=== PATIENT | female | born 1950 | race African-American/Black ===

== ENCOUNTER 2018-04-11 18:20 | Inpatient (IN) | payer OTHER ==
[~2018-04-11] VITALS: Ht 172.7 cm; Wt 169.0 kg
[~2018-04-11 18:20] MED LIST: ALLOPURINOL 10100 M1 PO; AMITRIPTYLINE H50 M2 PO; ASPIR 8181 MG PO; ATORVASTATIN CA40 MG PO; CATAPRES0.2 MG PO; COLACE100 MG PO; COLCHICINE0.6 MG PO; DITROPAN XL15 MG PO; HYDROCODONE-AP1 EAC6 PO; METHYLDOPA500 MG PO; OXYBUTYNIN 5 MG5 M2 PO; SENNA8.6 MG PO; SEROQUEL 50 MG50 MG PO; VESICARE10 M1 PO
[2018-04-11 18:22] VITALS: BP 130/76
[2018-04-11 20:31] LABS: ABSOLUTE NEUTROPHILS 9.7 thou/uL (1.4-8.2); BASOPHILS 0.7 % (0.0-2.0); EOSINOPHILS 3.2 % (0.0-3.0); HEMATOCRIT 42.2 % (37.0-47.0); LYMPHOCYTES 16.3 % (24.0-44.0); MCH 26.9 pg (26.0-34.0); MCHC 33.1 g/dL (28.0-37.0); MCV 81.3 fL (80.0-100.0); MONOCYTES 10.1 % (1.0-8.0); PLATELET COUNT 282 thou/uL (150-400); POLYS 69.7 % (36.0-66.0); RBC 5.19 mil/uL (4.20-5.00); RDW 15.8 % (10.5-14.5); WBC 13.9 thou/uL (4.0-11.0)
[2018-04-11 20:38] LABS: CREATININE 3.9 mg/dL (0.6-1.0); POTASSIUM 3.5 mmol/L (3.5-5.1)
[2018-04-11 20:44] LABS: ALBUMIN 2.6 g/dL (3.4-5.0); TOTAL BILIRUBIN 0.8 mg/dL (<0.1-1.0); TOTAL PROTEIN 7.8 g/dL (6.4-8.2)
[2018-04-11 21:39] LABS: URINE BILIRUBIN NEGATIVE (Negative); URINE BLOOD 1+ (Negative); URINE CLARITY CLEAR; URINE COLOR YELLOW; URINE GLUCOSE-RANDOM* NEGATIVE (Negative); URINE KETONES NEGATIVE (Negative); URINE LEUKOCYTES-REFLEX NEGATIVE (Negative); URINE NITRITE-REFLEX NEGATIVE (Negative); URINE PROTEIN (DIPSTICK) TRACE (Negative); URINE UROBILINOGEN 0.2 E.U./dl (0.2-1.0)
[2018-04-11 21:56] LABS: HYALINE CASTS 0-3 Few /LPF (None Seen); SQUAMOUS 4-10 Moderate /LPF (0-3)
[2018-04-11 21:58] LABS: BACTERIA-REFLEX None Seen /HPF (None Seen); CRYSTALS None Seen /LPF (None Seen); FINE GRANULAR CASTS 0-3 Few /LPF (None Seen); URINE WBC-REFLEX 0-5 Rare /HPF (0-5)
[2018-04-12 00:29] VITALS: BP 107/65
[2018-04-12 00:37] VITALS: BP 140/78
[2018-04-12 04:14] VITALS: BP 148/76
[2018-04-12 06:41] LABS: CALCIUM 8.5 mg/dL (8.5-10.1); POTASSIUM 3.1 mmol/L (3.5-5.1)
[2018-04-12 07:46] VITALS: BP 114/66
[2018-04-12 16:22] VITALS: BP 82/48
[2018-04-12 20:00] VITALS: BP 98/57
[2018-04-12 23:07] LABS: GLYCOHEMOGLOBIN (HGB A1C) 5.4 % (4.8-5.6)
[2018-04-13] VITALS: BP 117/66
[2018-04-13 03:30] VITALS: BP 100/55
[2018-04-13 05:55] LABS: HEMATOCRIT 31.5 % (37.0-47.0); MCH 26.6 pg (26.0-34.0); MCHC 31.9 g/dL (28.0-37.0); MCV 83.3 fL (80.0-100.0); RBC 3.78 mil/uL (4.20-5.00); RDW 16.1 % (10.5-14.5); WBC 10.9 thou/uL (4.0-11.0)
[2018-04-13 06:02] LABS: HEMOGLOBIN 10.1 gm/dL (12.0-15.0)
[2018-04-13 06:08] LABS: CALCIUM 7.1 mg/dL (8.5-10.1); POTASSIUM 3.1 mmol/L (3.5-5.1)
[2018-04-13 08:01] VITALS: BP 112/57
[2018-04-13 17:22] VITALS: BP 148/73
[2018-04-13 19:30] VITALS: BP 147/73
[2018-04-13 20:30] VITALS: BP 107/54
[2018-04-14 04:00] VITALS: BP 138/72
[2018-04-14 06:05] LABS: ABSOLUTE NEUTROPHILS 10.7 thou/uL (1.4-8.2); BASOPHILS 0.3 % (0.0-2.0); EOSINOPHILS 2.8 % (0.0-3.0); HEMATOCRIT 33.2 % (37.0-47.0); HEMOGLOBIN 10.5 gm/dL (12.0-15.0); LYMPHOCYTES 11.9 % (24.0-44.0); MCH 26.2 pg (26.0-34.0); MCHC 31.5 g/dL (28.0-37.0); PLATELET COUNT 200 thou/uL (150-400); RDW 15.5 % (10.5-14.5); WBC 13.8 thou/uL (4.0-11.0)
[2018-04-14 06:16] LABS: CALCIUM 8.3 mg/dL (8.5-10.1)
[2018-04-14 06:18] LABS: CREATININE 2.5 mg/dL (0.6-1.0)
[2018-04-14 07:50] VITALS: BP 153/78
[2018-04-14 08:53] LABS: FOLIC ACID 12.2 ng/mL (8.6-58.9)
[2018-04-14 16:05] VITALS: BP 151/83
[2018-04-14 19:09] VITALS: BP 157/88
[2018-04-15 04:53] VITALS: BP 157/76
[2018-04-15 05:55] LABS: CALCIUM 9.3 mg/dL (8.5-10.1); CREATININE 2.1 mg/dL (0.6-1.0); POTASSIUM 4.7 mmol/L (3.5-5.1)
[2018-04-15 07:15] VITALS: BP 151/67
[2018-04-15 16:00] VITALS: BP 140/73
[2018-04-15] MEDS ORDERED: MIRALAX17 GM PO (16:13)
[2018-04-15] MEDS ORDERED: NOVOLOG100 UNIT/1 SUBQ (16:51)
== END 2018-04-15 17:49 | DRG 389 ==
LOC: ER 18:20 → EROBS 22:14 → 4E 22:14
PROVIDERS: Emergency Medicine; Nurse Practitioner Acute Care; ADMIT Hospitalist
DX: K56.41 Fecal impaction (principal); N17.9 Acute kidney failure, unspecified; N18.5 Chronic kidney disease, stage 5; F11.20 Opioid dependence, uncomplicated; Z68.43 Body mass index [BMI] 50.0-59.9, adult; N13.9 Obstructive and reflux uropathy, unspecified; E78.00 Pure hypercholesterolemia, unspecified; Z96.641 Presence of right artificial hip joint; R33.9 Retention of urine, unspecified; E11.22 Type 2 diabetes mellitus with diabetic chronic kidney disease; I12.9 Hypertensive chronic kidney disease with stage 1 through stage 4 chronic kidney disease, or unspecified chronic kidney disease; I95.9 Hypotension, unspecified; E87.6 Hypokalemia; E66.01 Morbid (severe) obesity due to excess calories; G89.4 Chronic pain syndrome; M62.84 Sarcopenia; N32.81 Overactive bladder; D63.8 Anemia in other chronic diseases classified elsewhere; Z83.3 Family history of diabetes mellitus; Z90.710 Acquired absence of both cervix and uterus; Z87.891 Personal history of nicotine dependence; Z79.82 Long term (current) use of aspirin; Z79.899 Other long term (current) drug therapy; Z28.21 Immunization not carried out because of patient refusal
CPT/HCPCS: 10084

== ENCOUNTER 2018-04-15 15:07 | Inpatient (IN) | payer OTHER ==
[~2018-04-15] VITALS: Ht 172.7 cm; Wt 160.1 kg
[2018-04-15] MEDS ORDERED: MIRALAX17 GM PO (16:13)
[2018-04-15] MEDS ORDERED: NOVOLOG100 UNIT/1 SUBQ (16:51)
--- NOTE | 2018-04-15 19:42 | NUR ---
ASSUMED CARE AT APPROX 1800. PATIENT A/O X4. ADMISSION HISTORY AND EDUCATION COMPLETE. PATIENT ORIENTED TO UNIT. HOSPITALIST CALLED TO VERIFY INSULIN ORDERS. PATIENT ATE DINNER UPON ARRIVING TO UNIT. BROUGHT IN BED BY VOLUNTEERS. REPORT GIVEN TO NIGHT RN. PATIENT RESTING IN BED AT CHANGE OF SHIFT.
[2018-04-15 20:20] VITALS: BP 157/85
--- NOTE | 2018-04-16 04:57 | NUR ---
ASSUMED CARE OF PT AT 1915. PT ALERT, ORIENTED X4. HAS BEEN INCONT OF URINE AND STOOL THIS SHIFT. ZGARD APPLIED TO OPEN AREAS ON RIGHT BACK. REPOSITIONED WITH ASSIST OF THREE Q2 HRS. HAS APPEARED TO BE SLEEPING WHEN CHECKED ON HOURLY ROUNDS. FALL PRECAUTIONS IN PLACE.
[2018-04-16 06:04] LABS: HEMATOCRIT 38.3 % (37.0-47.0); HEMOGLOBIN 12.3 gm/dL (12.0-15.0); MCH 26.6 pg (26.0-34.0); MCV 83.2 fL (80.0-100.0); RBC 4.61 mil/uL (4.20-5.00); RDW 15.6 % (10.5-14.5); WBC 9.9 thou/uL (4.0-11.0)
[2018-04-16 06:18] LABS: CALCIUM 9.8 mg/dL (8.5-10.1); CREATININE 1.8 mg/dL (0.6-1.0); POTASSIUM 4.4 mmol/L (3.5-5.1)
[2018-04-16 08:00] VITALS: BP 143/87
--- NOTE | 2018-04-16 08:00 | NUR ---
cm visited with pt at bedside, she is a & o x 3 with forgetfulness and confusion at time. intro to cm, team meeting, and transition of care. " live with drt for 8 months , been bed bound. have walker and wheel chair. daughter give me bed bath. cant walk anymore. had rehab in past and maybe hh. have to ask daughter who was with"/karma. will cont following as needed for dc needs. noted in chairtremaine working to see if pt will qualify for bariatric hosp bed for home.
--- NOTE | 2018-04-16 19:24 | NUR ---
ASSUMED CARE OF PT AT 0715. PT IS A&OX4 WITH FORGETFULNESS & CONFUSION AT TIMES. REPORTS PAIN IN BLADDER WHEN UNINATING. HAS FREQUENT URNINATION. MAZA REMOVED YESTERDAY. PUREWICK IN PLACE. PT IS INCONTINENET TO B&B. HAS HAD 3 BM TODAY IN WHICH 2 WERE ON THIS SHIFT. IS BED-BOUND & IS TURNED Q2H. IS UP WITH A JERRY LIFT TIMES TWO. FALL PRECAUTIONS & HOURLY ROUNDING MAINTAINED. PT IS STABLE. LABS & VITALS REVIEWED. PT IS IN ROOM IN BED RESTING. CALL LIGHT WITHIN REACH. WILL CONTINUE TO MONITOR.
[2018-04-16 19:55] VITALS: BP 129/82
[2018-04-16 23:16] LABS: URINE BILIRUBIN NEGATIVE (Negative); URINE BLOOD 2+ (Negative); URINE CLARITY SL CLOUDY; URINE COLOR YELLOW; URINE GLUCOSE-RANDOM* NEGATIVE (Negative); URINE KETONES NEGATIVE (Negative); URINE PROTEIN (DIPSTICK) 1+ (Negative); URINE SPECIFIC GRAVITY 1.015 (1.005-1.035); URINE UROBILINOGEN 0.2 E.U./dl (0.2-1.0)
[2018-04-16 23:22] LABS: URINE LEUKOCYTES-REFLEX 1+ (Negative); URINE NITRITE-REFLEX POSITIVE (Negative)
[2018-04-16 23:24] LABS: BACTERIA-REFLEX >30 Many /HPF (None Seen); CASTS None Seen /LPF (None Seen); MUCUS 0-3 Light strn/LPF (None Seen); SQUAMOUS None Seen /LPF (0-3); URINE RBC 3-10 Few /HPF (0-2); URINE WBC-REFLEX >25 Many /HPF (0-5)
[2018-04-16 23:25] LABS: CRYSTALS None Seen /LPF (None Seen); WBC CLUMPS Few (None Seen)
--- NOTE | 2018-04-17 00:38 | NUR ---
PT ASSESSMENT COMPLETED AND VSS. MEDS GIVEN ORDERED AND WELL TOLERATED. FALL PRECAUTIONS IN PLACE. BG WNL. URINE SENT FOR TESTING TO THE LAB. +UTI. LAW WRITER DANIEL AWARE. FEMALE CATH IN PLACE AND WORKING WELL. URINE CLOUDY WITH SEDIMENT. INC OF MODERATE SIZE SOFT BROWN STOOL. ASST WITH REPOSITION. SLEEPING WELL. WILL CONTINUE TO MONITOR FREQUENTLY.
[2018-04-17 07:47] VITALS: BP 152/94
--- NOTE | 2018-04-17 11:43 | NUR ---
ASSUMED CARE AT APPROX 0715. PATIENT A/O X4. NEEDS CUES FOR REDIRECTION AT TIMES. PARTICIPATING IN THERAPY. EXTERNAL CATHETER IN PLACE, PATIENT ANXIOUS ABOUT REMOVAL. LOW BED MOBILITY AT THIS TIME, PATIENT EDUCATED ON MATTHEW-CARE AND MAINTAINING SKIN INTERGRITY, WILL REMOVE TO ASSESS SKIN. PATIENT HAD MULTIPLE SOFT BM'S LAST NIGHT, PROVIDER PAGED TO NOTIFY. BLOOD SUGARS MONITORED, WNL. PATIENT EDUCATED ON CC DIET, STATED SHE WAS ON ORAL DIABETIC MEDS AT HOME. PRAFO BOOTS PROVIDED. SCD'S IN PLACE. PATIENT TURNED Q2 HOURS. FALL PRECAUTIONS IN PLACE. WILL CONTINUE TO MONITOR.
[2018-04-17 19:42] VITALS: BP 153/88
--- NOTE | 2018-04-18 04:01 | NUR ---
TURNING PATIENT TO RELIVE PRESSURE ON HER RIGHT BACK WHERE THERE ARE 3 SMALL WOUNDS. EXTERNAL FEMALE CATHETER IN PLACE AND IS DRAINING JOSE JUAN URINE. MOISTURE BARRIER TO RIGHT BACK AND PERIRECTAL AREA AFTER CLEANSED WITH WIPES. HEEL PROTECTOR BOOTS IN PLACE AND TOLERATED, LOW AIR LOSS BED THERAPY CONTINUES
--- NOTE | 2018-04-18 11:36 | NUR ---
ASSUMED CARES AT 0700. PT AWAKE, ALERT AND ORIENTED*3, FORGETFUL. VITALS REMAINED STABLE FOR THIS PATIENT. C/O PAIN ON HER LOWER BACK, PAIN MEDICATION ADMINISTERED NEEDED. PT CONTINUES TO HAVE WOUNDS ON HER BACK RIGHT AND LEFT GROIN, CLEANED AND ZGUARD APPLIED. CREAM COLORED VAGINAL DISCHARGE NOTED, MATTHEW CARE DONE AND SITE DRIED, EXTERNAL FEMALE CATHETER IN PLACE. PT REMAINS INCONTINENT OF BOTH B&B. SKIN FOLDS UNDER HER BREASTS AND ABDOMEN CLEAN AND DRY. PT HAS DRY SKIN ON HER BLE, LOTION APPLED. PT REPOSITIONED Q2H, SCD'S ON AND PRESSURE BOOTS ON. Q1H VISUAL CHECKS. CALL LIGHT WITHIN REACH. FALL PRECAUTIONS IN PLACE
[2018-04-18 19:18] VITALS: BP 152/81
[2018-04-18 20:51] VITALS: BP 143/56
--- NOTE | 2018-04-18 23:29 | NUR ---
PT ASSESSMENT COMPLETED AND VSS. MEDS GIVEN ORDERED AND WELL TOLERATED. FALL PRECAUTIONS IN PLACE. PT IS ASKING TO LOOSE WEIGHT AND HER GOAL IS TO WALK AGAIN. SHE WANTS A NEW DIET PLAN PUT TOGETHER. ALSO, SHE WANTS TO TALK WITH THERAPY ABOUT HER GOAL TO WALK AND SEE IF THEY THINK SHE CAN. ASST WITH REPOSITION. PRN PAIN MEDICATION WORKING WELL. SLEEPING. WILL CONTINUE TO MONITOR FREQUENTLY.
[2018-04-19 08:00] VITALS: BP 149/91
--- NOTE | 2018-04-19 12:29 | NUR ---
ASSUMED CARES AT 0700. PT IN BED AWAKE, ALERT AND ORIENTED *4, FORGETFUL AND EASILY DISTRACTED. C/O LOW BACK PAIN, PAIN MEDICATION ADMINISTERED. VITALS REMAINED STABLE. CONTINUES TO HAVE EDEMA IN BLE. SKIN TEARS ON BACK RIGHT AND GROIN LEFT, CLEANED AND Z-GUARD APPLIED. EXTERNAL FEMALE CATHETER IN PLACE WHEN IN BED, URINE DARK YELLOW WITH MUCUS. PT ABLE TO SIT ON EDGE OF BED WITH THERAPY THIS AM AND STOOD UP *2 ON EDGE OF BED FOR 15SEC DID NOT TOLERATE WELL. SCD AND PRESSURE BOOTS ON. Q2H REPOSITION. Q1H VISUAL CHECKS. CALL LIGHT WITHIN REACH. FALL PRECAUTIONS IN PLACE. BARIATRIC BED DELIVERED AND PT TRANSFERED TO BED WITH HELP OF THERAPIST.
[2018-04-19 19:00] VITALS: BP 153/80
--- NOTE | 2018-04-20 00:42 | NUR ---
assumed care at approx 1900 evening 04/19. pt lying in bed with head of bed elevated resting and talking on cell phone at bedside. pts speech somewhat difficult to understand at times. pt now with luther catheter in place with dark yellow urine in bag. pt given pain med earlier and pt appears to be sleeping soundly with hourly rounding checks. pt assisted with turning in bariatric bed. alarm on and call light in reach. will continue to monitor.
[2018-04-20 05:34] VITALS: BP 157/83
[2018-04-20 06:12] LABS: ABSOLUTE NEUTROPHILS 4.8 thou/uL (1.4-8.2); BASOPHILS 0.8 % (0.0-2.0); HEMATOCRIT 35.3 % (37.0-47.0); HEMOGLOBIN 11.3 gm/dL (12.0-15.0); MCH 26.5 pg (26.0-34.0); MCV 82.6 fL (80.0-100.0); MONOCYTES 11.7 % (1.0-8.0); PLATELET COUNT 273 thou/uL (150-400); POLYS 60.5 % (36.0-66.0); RBC 4.27 mil/uL (4.20-5.00); RDW 15.3 % (10.5-14.5); WBC 7.9 thou/uL (4.0-11.0)
[2018-04-20 06:32] LABS: CALCIUM 9.2 mg/dL (8.5-10.1); CREATININE 2.1 mg/dL (0.6-1.0); MAGNESIUM 1.8 mg/dL (1.8-2.4); POTASSIUM 4.3 mmol/L (3.5-5.1)
[2018-04-20 08:10] VITALS: BP 120/72
--- NOTE | 2018-04-20 11:42 | NUR ---
ASSUMED CARES AT 0700. REPORTS SLEPT GOOD HAS MAZA CATH PATENT AND INTACT.PT ALERT AND ORIENTED *4, HAS SLURRED SPEECH, NOT CLEAR D/T MISSING TEETH. FORGETFUL AND EASILY DISTRACTED. C/O LOW BACK PAIN AND KNEE PAIN 8/10 PAIN MEDICATION ADMINISTERED, OBTAINED ORDER FOR VOLTAREN GEL. VITALS REMAINED STABLE. CONTINUES TO HAVE EDEMA IN BLE, ELEVATE BLE WHEN IN BED. SKIN TEARS ON BACK RIGHT AND GROIN LEFT, CLEANED AND Z-GUARD APPLIED. OT GAVE SPRONGE BATH AND PHYSICAL THERAPIST GOT PT UP IN WC THIS AM AND STOOD UP *2 ON EDGE OF BED FOR 15SEC DID NOT TOLERATE WELL. SCD AND PRESSURE BOOTS ON. Q2H REPOSITION. Q1H VISUAL CHECKS. CALL LIGHT WITHIN REACH. FALL PRECAUTIONS IN PLACE. BARIATRIC BED DELIVERED AND PT TRANSFERED TO BED WITH HELP OF THERAPIST. OFFERERED SUPPORTIVE CARE. MEDS GIVEN ORDERED. BS 102. NO INSULIN. OBTAINED ORDER TO CHANGE ACHS TO ONE DAILY. FALL PRECAUTION IN PLACE. CALL LIGHT WITHIN REACH. ENCOURAGED PT TO SIT UP TO WC UNTIL AFTER THERAPY. REASSESSMENT PER CHART. LAST BM WAS 2 DAYS AGO. CONTINUE TO BE ON ABT FOR UTI. CREATINE 2.1, NOTIFIED YOBANY AND ENCOURAGED PT TO DRINK MORE FLUID.
[2018-04-20 13:22] VITALS: BP 126/82
--- NOTE | 2018-04-20 16:56 | NUR ---
Followup visit made with the pt at bedside to discuss team conference goals and dc recommendations. Message left for the pt's dtr Malika to contact cm to discuss her dc planning needs and the care team recommendations. The care team would like the family to bring in clothing and a phone academic guidance specialist as her is not working. They would like to know how the home is setup and if her w/c is able to go through the doorways of the bedroom,living,bathroom and kitchen. Pt is working on propelling her w/c 75'. Weight bearing activities are the goal for next week. Family will likely need training for transfers and the pt may need a ross lift ( tremaine has one that goes to 450lbs). Will f/u on barriatric bed request. The pt is motivated and would like to be able to be up in her chair and assist with transfers at home. DC date uncertain pending her progress. Re team next week.
[2018-04-20 20:06] VITALS: BP 156/89
--- NOTE | 2018-04-21 01:38 | NUR ---
PT ASSESSMENT COMPLETED AND VSS. MEDS GIVEN ORDERED AND WELL TOLERATED. FALL PRECAUTIONS IN PLACE. PRN PAIN MEDICATION WORKING WELL. MAZA DRAINING DARK YELLOW URINE. ASST WITH REPOSITION FOR COMFORT. JAZLYN FOOT BOOTS IN PLACE. PT DENIES NEEDS. WILL CONTINUE TO MONITOR FREQUENTLY.
[2018-04-21 08:20] VITALS: BP 132/79
--- NOTE | 2018-04-21 16:51 | NUR ---
ASSUMED CARE AT APPROX 0715. PATIENT A/O X4. NEEDS CUES FOR REDIRECTION, MAKES NEEDS KNOWN APPROPRIATELY. VSS. REPOSITIONTED Q2 WHILE IN BARIATRIC BED. HEEL PROTECTOR BOOTS AND SCD'S IN PLACE. PARTICIPATED IN THERAPY. TOLERATED SITTING UP IN WHEELCHAIR FOR >2 HOURS THIS AFTERNOON. ASSISTED TO BED X2 PERSONS AND JERRY LIFT. PATIENT C/O BACK PAIN, PAIN MEDS OFFERED AVAILABLE. ROUNDED ON HOURLY. FALL PRECAUTIONS IN PLACE. WILL CONTINUE TO MONITOR.
[2018-04-21 20:31] VITALS: BP 141/75
--- NOTE | 2018-04-22 03:12 | NUR ---
TURNED TO SIDE IB BARIATRIC BED, COMPELLA THERAPY CONTINUES, CUSHIONED HEEL BOOTS IN PLACE. SHAUNNA BISWAS DD. APPRECIATES PAIN MED AT HS. TOLERATING MEDS AND IS AWARE THAT ELAVIL IS INCREASED FROM 50 TO 75 AT HS
--- NOTE | 2018-04-22 04:51 | NUR ---
LEFT GROIN CLEANED; Z-GUARD APPLIED TO GROIN AND UNDER PANNUS, SKIN UNBROKEN
[2018-04-22 05:33] VITALS: BP 171/94; BP 191/94
--- NOTE | 2018-04-22 07:57 | NUR ---
PT IS A&0X4, SLIGHTLY FORGETFUL, HASN'T AMB SINCE LAST MAY, C/O PAIN LOWER BACK AND RIGHT FOOT BEING MANAGED BY PAIN MED ADM, USES CALL LIGHT FOR NEEDS, SEE INTERVENTION FOR ASSESSMENT, TURN Q2H, PT MAKES SOME SMALL POSITION CHANGES BY SELF. ENCOURAGED HER TO CALL FOR ANY NEEDS
[2018-04-22 08:50] VITALS: BP 146/86
--- NOTE | 2018-04-22 10:56 | H ---
[facility] [place] [address] HISTORY AND PHYSICAL Name: STERLING DEWITT Room #: 516-1 ADM IN M.R.#: [id number] Admission: 04/15/18 ������������������ Attend Phys: Abdiel Rodriguez MD Discharge: ������������������ Date of : 52 Report #: [id number] THIS REPORT FOR: //name// CC: Abdiel Stuart DATE OF SERVICE: 04/16/2018 REFERRING PHYSICIAN: Dr. Eddi Kirby CHIEF COMPLAINT: Weakness. COVERING FOR: Dr. Abdiel Rodriguez. HISTORY OF PRESENT ILLNESS: The patient is a pleasant 67-year-old right-hand dominant female who was admitted to [facility] on 05/09/2018 with symptoms of urinary retention and fecal impaction. She was disimpacted and the Marino catheter was placed. She has acute kidney insufficiency with initial creatinine of 3.9, which improved during her stay. She was evaluated for inpatient rehabilitation needs and found to be an appropriate candidate for the program. PAST MEDICAL HISTORY: As above. Also pertinent for hypertension, morbid obesity with a BMI of 57.5, chronic kidney disease stage 3, hypercholesterolemia and diabetes mellitus type 2, gout. PAST SURGICAL HISTORY: Hysterectomy. She has tubal ligation and right hip replacement. ALLERGIES: No known drug allergies. SOCIAL HISTORY: Smoking: She quit over 1 year ago. Alcohol and drug use: None. The patient premorbidly lives at home with her daughter and grandson. They are able to assist her during the day. She is mostly bed bound and has not been up to even her manual wheelchair for some time according to her report. She has not walked since 2018 after several falls. She has assistance x 2 at the edge of the bed once a week and otherwise stays in bed. IADLs are provided and she has maximal assistance for ADLs. She is able to feed herself. She does not leave the house unless by EMS or ambulance. She has 2 stairs to enter and exit the home. MEDICATIONS: Reviewed. I note that she is receiving allopurinol for gout, which has improved. Please see the written documentation of the history and physical for the full details of her medications and dosages. FAMILY HISTORY: The patient denies any significant family history that is [facility] [address] [place] [address] HISTORY AND PHYSICAL Name: STERLING DEWITT Room #: 516-1 ADM IN [facility].#: [id number] Admission: 04/15/18 ������������������ Attend Phys: Abdiel Rodriguez MD Discharge: ������������������ Date of : 52 Report #: [id number] related to her current condition. REVIEW OF SYSTEMS: As above. Specifically, she denies chest pain, shortness of breath, fevers, chills, headaches. Otherwise, remainder of 12-point review is negative except for what was stated above. PHYSICAL EXAMINATION: GENERAL: No acute distress, well-developed, well-nourished, BMI 57.5, afebrile. CARDIOVASCULAR: Pulses are 2+ and regular. LUNGS: Aerating well. ABDOMEN: Soft, nontender, nondistended. EXTREMITIES: Calves are nontender. Homans sign is negative. She has bilateral lower extremity edema of 1+ bilaterally. LYMPHATICS: No cervical adenopathy. MUSCULOSKELETAL: Functionally, she requires attendant's assistance for bed mobility and requires maximal assistance to sit at the edge of the bed. She shows no foot drop. She does not have any tremors or clonus. Her muscle strength is graded 3/5 bilaterally. Unable to lift her legs antigravity bilaterally, but she can move her legs in the bed a little bit. NEUROLOGIC/PSYCHIATRIC: Coordination is fair. Muscle stretch reflexes 1/4 and symmetric. Sensation impaired in the feet bilaterally. Alert, oriented, pleasant, cooperative with exam. Mood is good. IMPRESSION: Mobility and self-care deficits in a 67-year-old right-hand dominant female secondary to: 1. Cardiopulmonary debilitation. 2. Fecal impaction, status post disimpaction. 3. Urinary retention. 4. Acute kidney insufficiency on chronic renal disease. 5. Hypertension. 6. Hypokalemia. 7. Morbid obesity, BMI 57.5. 8. Chronic pain syndrome. 9. Diabetes mellitus type 2. PLAN: 1. Admit to the rehabilitation unit for comprehensive therapies. 2. Please see the plan of care, post-admission physician evaluation and admission orders for full details of her rehabilitation care plan. 3. DVT prophylaxis with sequential compression devices and compression hose as well as ankle pumping exercises. Anticoagulation decisions per Internal Medicine. 4. Dr. Rodriguez will return to the office on 06/20/2018 and resume care at that time. 5. Weekly team conferences to discuss rehabilitation progress. [address] [address] HISTORY AND PHYSICAL Name: STERLING DEWITT Room #: 516-1 ADM IN M.R.#: [id number] Admission: 04/15/18 ������������������ Attend Phys: Abdiel Rodriguez MD Discharge: ������������������ Date of : 52 Report #: [id number] POST-ADMISSION PHYSICIAN EVALUATION: Post-admission physician evaluation has been completed. The patient's preadmission screen was reviewed in its entirety. Clinical status is supported by the information contained within that document. The patient is an appropriate candidate to undergo a comprehensive inpatient rehabilitation program consisting of PT, OT and rehabilitation nursing 3 hours a day at least 5 days per week. Furthermore, nothing has changed since the preadmission screen was completed to suggest that the patient would not be able to tolerate or benefit from this rehabilitation program. It is my opinion that inpatient rehabilitation rather than jail is a more appropriate place for the patient due to her multiple medical needs, requiring comprehensive followup care. She is at risk for developing clinical complications during her participation in the rehabilitation program due to the medical conditions that were noted above. Plan to manage these medical conditions as noted above, will be to consult the referring physicians as noted in the admission orders and follow her closely during her rehabilitation course. INDIVIDUALIZED PLAN OF CARE: Some additional finding. The patient is receiving inpatient rehabilitation due to the functional impairments that were noted above. Identified interventions include physical therapy and occupational therapy to address her mobility and self-care deficits. PM and R will provide rehabilitation management. Internal Medicine will follow up on multiple medical issues. Rehabilitation nursing care 24 hours a day for care needs. patient financial services coordinator for discharge planning, medical equipment needs and dietitian consultation for nutrition. ESTIMATED LENGTH OF STAY: Approximately 10-14 days. ANTICIPATED FUNCTIONAL OUTCOME: Mild to minimal assistance with transfers to and from the bed to the wheelchair using a slide board. She will require at least moderate assistance for her daily activities. She will continue to be dependent for IADLs. ANTICIPATED DISCHARGE DESTINATION: Home with family. She will likely need home health services at that time. MEDICAL PROGNOSIS: Good. ANTICIPATED THERAPIES: Physical, occupational therapy 3 hours a day 5 days a week for an anticipated duration of 10-14 days. SUMMARIZATION OF TREATMENT PLAN: The patient will continue to receive an [facility] [address] [place] [address] HISTORY AND PHYSICAL Name: STERLING DEWITT Room #: 516-1 ADM IN M.R.#: [id number] Admission: 04/15/18 ������������������ Attend Phys: Abdiel Rodriguez MD Discharge: ������������������ Date of : 52 Report #: [id number] inpatient rehabilitation program as outlined above in an effort to improve her overall function and return home at the level of function mentioned above. ��������������������������������������������� <ELECTRONICALLY SIGNED> ���������������������������������������� By: Abdiel Rodriguez MD ��������������������������������������������� 04/22/18 [id number] Aroldo Torres, /nt
[2018-04-22 11:30] LABS: CALCIUM 9.2 mg/dL (8.5-10.1); CREATININE 2.2 mg/dL (0.6-1.0); POTASSIUM 4.2 mmol/L (3.5-5.1); URIC ACID* 5.9 mg/dL (2.6-7.2)
--- NOTE | 2018-04-22 12:53 | NUR ---
cm called left message with daughter tip, rt home environment ( size for door way, if room for bariatric hospital bed?). will cont following as needed for dc needs.
[2018-04-22 20:13] VITALS: BP 130/68
--- NOTE | 2018-04-23 03:25 | NUR ---
Assumed care of pt at 1915. Pt alert and oriented x4. Marino cath patent with clear yellow urine. Prafo boots on at HS. Repositioned q 2 hrs. Last BM 04/18, pt refuses laxatives at this time. Has appeared to be sleeping when checked on hourly rounds. Fall precautions in place.
--- NOTE | 2018-04-23 08:20 | NUR ---
Nutrition: Consulted for wt loss education. BMI of 58.1 Discussed carb sources, wt loss tips, heart healthy diet recommendations. BG and A1c controlled. Considered low risk.
[2018-04-23 08:30] VITALS: BP 145/91
--- NOTE | 2018-04-23 09:45 | NUR ---
cm spoke with pt at bedside, rt needing to speak with t rt taylor, " she works but i will have her call you"/karma. letty left another message with tip with request for call back.
--- NOTE | 2018-04-23 20:03 | NUR ---
ASSUMED CARE OF PT AT 0715. PT IS A&OX4. IS ON ROOM AIR. DENIES PAIN AT THIS TIME. IS STABLE. IS Q2H TURNED. IS UP WITH JERRY LIFT TRANSFER TO W/C. FALL PRECAUTIONS & HOURLY ROUNDING MAINTAINED. PT HAS HEALING SCABS FROM SKIN TEARS ON BACK & LEFT GROIN. LABS & VITALS REVIEWED. THIS NURSE DC'D SHAUNNA PER ORDER. PT IS CURRENTLY IN BED ON RIGHT SIDE WATCHING TV. CALL LIGHT WITHIN REACH. WILL CONTINUE TO MONITOR.
[2018-04-23 21:00] VITALS: BP 150/101
--- NOTE | 2018-04-24 03:23 | NUR ---
ASSUMED CARE OF PT AT 191. PT ALERT AND ORIENTED X4. SHAUNNA WAS DC'D BY DAY SHIFT RN AT 194. PT HAS NOT VOIDED OF YET. BLADDER SCAN DONE AT 214 WITH 124CC SEEN IN BLADDER. PT C/O PAIN IN RIGHT KNEE, RELIEVED WITH VOLTAREN GEL. TURNED Q 2 HRS. HAS APPEARED TO BE SLEEPING WHEN CHECKED ON HOURLY ROUNDS.
[2018-04-24 06:11] VITALS: BP 147/86
[2018-04-24 07:30] VITALS: BP 170/90
--- NOTE | 2018-04-24 13:10 | NUR ---
ASSUMED CARE OF PT AT 0715. PT A&OX4. INCONT BLADDER SINCE MAZA REMOVED YESTERDAY. CONTINUE TO BE ON PROTOCOL PER MAZA REMOVED. PT SOAKED HER BED. BLADDER SCANNED HAS 218 CC RESIDUAL. VSS ON RA. C/O BACK AND KNEE PAIN. PRN LORTAB GIVEN, VOLTAREN GEL APPLIED. IS Q2H TURNED WHILE IN BED. PT ABLE TO MOVE WELL IN BED WITH ASSIST AND ENCOURGEMENT. REFUSED TO GET UP WITH JERRY LIFT TODAY D/T ABD DISCOMFORT. BS HYPOACTIVE. LAST BM WAS 7 DAYS AGO. GAVE PRN COLACE, SENNOKOT AND MIRALAX WITH WARM PRUNE JUICE. CREATINE IS 2.2, DR. VELEZ AWARES OF LAB AND PT'S CONSTIPATION. RECEIVED ORDER TO CHANGE PRN COLACE AND SENOKOT TO SCHEDULED. FALL PRECAUTIONS & HOURLY ROUNDING MAINTAINED. PT HAS HEALING SCABS FROM SKIN TEARS ON BACK & LEFT GROIN. OFFERED SUPPORTIVE CARE. MEDS GIVEN ORDERED AND PRN. LABS REVIEWED. PT CONTINUE TO PARTICIPATES WITH THERAPY EVEN WHEN SHE DIDN'T GET UP. PT IS CURRENTLY IN BED ON RIGHT SIDE WATCHING TV. CALL LIGHT WITHIN REACH. WILL CONTINUE TO MONITOR BM.
--- NOTE | 2018-04-24 14:55 | HC ---
[facility] [place] [address] CONSULTATION Name: STERLING DEWITT Room #: 516-1 ADM IN M.R.#: [id number] Admission: 04/15/18 ������������������ Attend Phys: Abdiel Rodriguez MD Discharge: ������������������ Date of : 52 Report #: [id number] THIS REPORT FOR: //name// CC: Abdiel Alexandraa Suuri DATE OF SERVICE: 04/17/2018 ATTENDING PHYSICIAN: Abdiel Rodriguez MD LABORER RAGS: Elvis Herrera, PhD CLINICAL PRESENTATION: The patient is a 67-year-old female admitted to the rehabilitation unit at [facility] for a comprehensive inpatient rehabilitation program to improve functional mobility and activities of daily living and self-care and mental status secondary to medical complexity and general debility. She carries an admitting diagnosis of cardiopulmonary debilitation, fecal impaction, status post disimpaction, urinary retention, acute kidney insufficiency on chronic renal disease, hypertension, hypokalemia, morbid obesity, chronic pain syndrome and diabetes mellitus, type 2. The patient reports having been living with her daughter when she experienced a deterioration in functioning requiring hospitalization. A complete description of her medical condition and history can be found in her medical record. Neuropsychological consultation was requested to provide assistance in the assessment of cognitive and emotional status and to provide recommendations and services. As indicated, prior to this most recent medical event, she was living with her daughter. The patient has 6 children, 5 girls and a boy. Her in 1997. The patient has never driven. She has an eighth grade education and has required assistance with basic and instrumental activities of daily living. Family members were bathing her because of morbid obesity. She reports having frequent falls at home. The patient has not worked out of the home. She is primarily a homemaker. TECHNIQUES UTILIZED: Clinical interview, review of medical records, staff consultation and behavioral observation, mini mental status exam 2 standard version and clock drawing. EXAMINATION FINDINGS: The patient was alert and cooperative with the assessment. She accurately described events surrounding her admission and the purpose of hospitalization. She does not present with aphasia. Her thoughts are logical and goal oriented. There is no evidence of thought disorder. She does not report auditory or visual hallucinations. She describes difficulty with memory, sleep and mood. Symptoms of depression and anxiety are reported. She is morbidly obese. The patient is sedentary at home and very dependent on [address] [place] [address] CONSULTATION Name: STERLING DEWITT Room #: 516-1 ADM IN ..#: [id number] Admission: 04/15/18 ������������������ Attend Phys: Abdiel Rodriguez MD Discharge: ������������������ Date of : 51 Report #: [id number] family for activities of daily living. Her performance on the MMSE 2 brief version was in the low average range with a raw score of 13/16, which is a T score of 42 and percentile rank of 21. She is 3/3 for initial registration, 4/5 for orientation to time, 5/[address] and 1/3 for immediate recall of 3 items after a brief time delay and distraction. Her performance improved on the standard version of the MMSE 2 to a raw score of 22, T score of 40 and percentile rank of 16. She is 0/5 for serial 7's, 2/2 for naming, 1/1 for repetition, 3/3 for auditory comprehension. She could read and follow a single command, write a sentence and copy a simple geometric design. Clock drawing suggests some mild deficits in hand placement. This type of presentation suggests difficulty with memory, concentration and aspects of executive functioning. Premorbid cognitive functioning is likely to have been below average. Current functioning suggests maybe just a subtle to mild deficit in comparison to likely preexisting functioning. DIAGNOSTIC IMPRESSION: Persistent depressive disorder (dysthymia). Unspecified anxiety disorder. Mild neurocognitive disorder, unspecified, without behavior disorder. RECOMMENDATIONS: Dietary consultation is indicated to assist her in management of nutrition. Family education in regard to nutrition will also be of benefit. Continue treatment program for depression that includes the use of an antidepressant medication. Encouragement to engage in social activity will also improve general mood and well-being. As she becomes increasingly independent with mobility, general mood will likely improve. The patient would also benefit from a more complete treatment program to assist her with managing diet and nutrition in order to maintain better weight maintenance. Thank you very much for allowing me to provide the consultation on this patient. ��������������������������������������������� <ELECTRONICALLY SIGNED> ���������������������������������������� By: Elvis Herrera, PhD ��������������������������������������������� 04/24/18 1455 [id number] Elvis Herrera, PhD /nt
[2018-04-24 20:46] VITALS: BP 151/87
--- NOTE | 2018-04-25 05:00 | NUR ---
TURNED TO RIGHT SIDE TWICE OVERNIGHT, OTHERWISE REFUSING TO BE TURNED. LARGE BM THIS MORNING AFTER SUPPOSITORY LAST EVENING. VOLTAREM GEL TO KNEES
[2018-04-25 09:49] VITALS: BP 190/110
[2018-04-25 12:00] VITALS: BP 152/99
--- NOTE | 2018-04-25 16:31 | NUR ---
ASSUMED CARE OF PT AT 0730. PT IS A&OX4. IS ON ROOM AIR. IS STABLE. REPORTS CHRONIC BACK & BILAT LE PAIN THAT IS BEING MANAGED WITH TOPICAL & ORAL MEDS. PT GETS UP WITH PHYSICAL THERAPY WITH SLIDE BOARD TRANSFER. SLING MUST BE UNDER PT WHEN GETTING UP TO W/C TO TRANSFER BACK TO BED WITH ASSIST X 2-3. FALL PRECAUTIONS & HOURLY ROUNDING MAINTAINED. PT HAS HEALED SKIN TEARS ON BACK & LEFT GROIN. HAS OPEN SKIN TEAR ON RIGHT SIDE GROIN AREA. ZGURARD BEING APPLIED. PT IS A Q2H TURN. VITALS & LAB REVIEWED. WILL CONTINUE TO MONITOR.
[2018-04-25 20:00] VITALS: BP 121/92
--- NOTE | 2018-04-26 04:23 | NUR ---
ASSUMED PT CARE 0. PT ALERT AND ORIENTED. REASSESSMENT COMPLETED. VSS. CONTINUED HOURLY ROUNDING. CONTINUED Q2 TURNS. PT REPORTS ABDOMINAL PAIN AND BACK PAIN. WILL CONTINUE POC UNTIL EOS.
--- NOTE | 2018-04-26 07:24 | NUR ---
ASSUME PT CARE AT 0700. REPORTS SLEPT GOOD. NIGHT NURSE SAID PT REFUSED TO TURN COUPLE TIMES LAST NIGHT. C/O BACK PAIN AND KNEE PAIN 8, GAVE PRN TYLENOL AND HYDROCODONE. OT IS GIVING SPONGE BATH, VOLARENE GEL APPLIED. REASSESSMENT PER CHART. MAZA CATH INTACT WITH LIGHT YELLOW. OFFERED SUPPORTIVE CARE. B/P WAS HIGH LAST NIGHT. ENCOURAGED PT TO GET UP AND PARTICIPATE WITH THERAPY. FALL PRECAUTION IN PLACE. CALL LIGHT WITHIN REACH. WILL CONTINUE TO MONITOR.
[2018-04-26 09:50] VITALS: BP 165/84
[2018-04-26 19:30] VITALS: BP 153/99
--- NOTE | 2018-04-27 05:00 | NUR ---
Z-GUARD TO SMALL RED AREA RIGHT GROIN, REFUSING SCHEDULED TURNS. MAZA TO DD, DRINKING THIN LIQUIDS WITH MEDS.
[2018-04-27 06:12] LABS: CALCIUM 8.4 mg/dL (8.5-10.1); CREATININE 1.7 mg/dL (0.6-1.0); MAGNESIUM 1.7 mg/dL (1.8-2.4); POTASSIUM 4.4 mmol/L (3.5-5.1)
[2018-04-27 08:00] VITALS: BP 146/79
--- NOTE | 2018-04-27 08:15 | NUR ---
ASSUME PT CARE AT 0700. REPORTS SLEPT GOOD. REFUSED TO GET UP D/T PAIN, PRN LORTAB GIVEN BY NIGHT NURSE C/O BACK PAIN AND KNEE PAIN 09/25, GAVE PRN TYLENOL. ASSISTED PT TO SITTING UP AT THE EDGE OF THE BED AND EATING BREAKFAST NOW. REASSESSMENT PER CHART. MAZA CATH INTACT WITH ABMER COLOR. OFFERED SUPPORTIVE CARE. VSS ON RA. MORNING MEDS GIVEN. LAST BM WAS 2 DAYS AGO. BS HYPOACTIVE. COLACE AND SENOKOT GIVEN SCHEDULE, ALSO GIVEN PRN MIRALAX AND WARM PRUNE JUICE. ENCOURAGED PT TO GET UP AND PARTICIPATE WITH THERAPY. FALL PRECAUTION IN PLACE. CALL LIGHT WITHIN REACH. WILL CONTINUE TO MONITOR.
--- NOTE | 2018-04-27 13:08 | NUR ---
team meeting, recommendation: re team, cont to work on dme needs for home.
[2018-04-27 20:00] VITALS: BP 129/69
--- NOTE | 2018-04-28 03:24 | NUR ---
PATIENT AOX4 MAKES NEEDS KNOWN. PATIENT CALM AND COOPEARTIVE WITH CARE AND MEDS. PATIENT HAD A XL BOWEL MOVEMENT. PATIENT ENCOURAGED FLUIDS. PATIENT DENIED PAIN OR DISCOMFORT. PATIENT IS MAXIMUM ASSISTANCE WITH ADL, BED MOBILITY AND TOILETING. SCD ON. ELEVATED BLE.PATIENT IN BED ASLEEP AT THIS TIME BREATHING REGULAR AND UNLABOURED.
[2018-04-28 08:05] VITALS: BP 176/80
--- NOTE | 2018-04-28 18:10 | NUR ---
ASSUMED CARE AT APPROX 0715. PATIENT A/O X4. C/O BACK PAIN, AND OCCASIONAL PAIN IN MATTHEW-AREA. MEDICATED FOR THERAPY. MAZA TO DD, SECURED, MATTHEW-CARE COMPLETED. CLEAR, YELLOW URINE IN LARGE AMOUNTS OUTPUT. Z-GUARD APPLIED TO LEFT GROIN, WOUND PHOTO TAKEN. PATIENT PARTICIPATED IN THERAPY. TOLERATED SITTING UP IN WC FOR MOST OF MORNING. LIFT USED TO TRANSFER PATIENT BACK TO BED. FALL PRECAUTIONS IN PLACE. PATIENT TURNED Q2. RESTING IN BED. WILL CONTINUE TO MONITOR.
[2018-04-28 19:53] VITALS: BP 169/63
--- NOTE | 2018-04-29 03:34 | NUR ---
ASSUMED CARE OF PT AT 1915. PT ALERT AND ORIENTED X4. DENIES PAIN, NAUSEA OR DYPSNEA. MAZA CATH PATENT WITH CLEAR YELLOW URINE. TURNED Q 2 HRS. HAS APPEARED TO BE SLEEPING WHEN CHECKED ON HOURLY ROUNDS. FALL PRECAUTIONS IN PLACE.
[2018-04-29 08:58] VITALS: BP 186/98
[2018-04-29 11:54] VITALS: BP 187/103
--- NOTE | 2018-04-29 19:20 | NUR ---
ASSUMED CARE AT APPROX 0715. PATIENT A/O X4. C/O PAIN IN RIGHT KNEE AND MID-BACK. VOLTAREN GEL APPLIED, MEDICATED PRIOR TO THERAPY. PARTICIPATED IN THERAPY, TOLERATED SITTING UP IN WC FOR APPROX 8 HOURS THIS DATE, TRANSFERED BACK TO BED X ASSIST OF 3 USING JERRY LIFT. MAZA TO DD, SECURED. PATIENT ENCOURAGED TO MAINTAIN CARB CONTROL DIET/FOOD CHOICES, RESISTANT TO TEACHING. CARE TEAM NOTIFIED PATIENT'S DAUGHTER PROVIDED PHOTOS/VIDEOS OF THEIR HOME SET UP. FALL PRECAUTIONS IN PLACE. PATIENT RESTING IN BED AT CHANGE OF SHIFT.
[2018-04-29 20:02] VITALS: BP 161/93
--- NOTE | 2018-04-30 00:42 | NUR ---
PT ALERT AND ORIENTED X 4. MAZA PATENT DRAINING ADEQUATE AMTS YELLOW URINE. PT C/O PAIN IN HER KNEES. REFUSED VOLTAREN GEL AT HS. PT TURNED Q2H. PT APPEARS TO BE SLEEPING IN BETWEEN TURNS.
[2018-04-30 08:00] VITALS: BP 156/88
--- NOTE | 2018-04-30 14:11 | NUR ---
PATIENT ALERT AND ORIENTED. SHE IS CONCERNED ABOUT NOT BEING ABLE TO TURN TV CHANNELS. MAINT. CONTACTE AND INDICATED THE TV NEEDS TO BE PROGRAMMED WITH TV REMOTE CONTROL. PATIENT IS PARTICAPTING IN REHAB AND INDICATED SHE HAS LOST 3 POUNDS THIS WEEK AND WOULD LIKE TO BE ABLE TO WALK SO SHE CAN SPEND TIME WITH HER GRANDCHILDREN. ELIF WITH INFECTION CONTROL IS INVESTIGATING NEED FOR MAZA CATHETER. PATIENT HAS POSSIBLE HISTORY OF URINARY RETENTION.
--- NOTE | 2018-04-30 19:30 | NUR ---
ASSUMED CARE AT 1500, PATIENT SITTING IN CHAIR. DENIES ANY PAIN. WENT BACK TO BED AFTER DINNER.
--- NOTE | 2018-05-01 04:48 | NUR ---
ASSUMED CARE OF PT AT 1915. PT ALERT AND ORIENTED X4. C/O PAIN IN LOWER BACK AND RIGHT KNEE, RELIEVED WITH HYDROCODONE AND VOLTAREN GEL. ON SPECIALTY BED, REPOSITIONED Q 2 HRS. HAS APPEARED TO BE SLEEPING WHEN CHECKED ON HOURLY ROUNDS. FALL PRECAUTIONS IN PLACE.
[2018-05-01 07:30] VITALS: BP 156/90
[2018-05-01 12:40] VITALS: BP 149/85
--- NOTE | 2018-05-01 15:05 | NUR ---
ASSUMED CARE AT APPROX 0715. REPORTS SLEPT LAST NIGHT EVEN SHE HAD TO TURN Q2HRS. PATIENT A/O X4. C/O PAIN IN RIGHT KNEE AND MID-BACK. VOLTAREN GEL APPLIED, MEDICATED PRIOR TO THERAPY AND AFTER THERAPY. HAD SMALL SOFT BM THIS AM WHEN PHYSICAL THERAPIST GOT HER UP.PARTICIPATED IN THERAPY, TOLERATED SITTING UP IN WC FOR APPROX 4 HOURS THIS DATE, TRANSFERED BACK TO BED X ASSIST OF 2 USING JERRY LIFT. PT WEIGHT 359.8LBS TODAY. MAZA TO DD, SECURED. PATIENT ENCOURAGED TO MAINTAIN CARB CONTROL DIET/FOOD CHOICES. OFFERED SUPPORTIVE CARE. VSS ON RA. MEDS GIVEN, REASSESSMENT PER CHART. FALL PRECAUTIONS IN PLACE. CALL LIGHT WITHIN REACH. CONTINUE TO MONITOR.
[2018-05-01 21:39] VITALS: BP 141/63
--- NOTE | 2018-05-02 02:25 | NUR ---
assumed care at approx 1900 evening 05/01. pt lying in bed with head of bed elevated at change of shift resting and talking on cellphone. pt on low airloss bed. luther to dd with vikki colored urine to bag. pt took hs meds with water tolerating well. pt appears to be sleeping soundly with hourly rounding checks. assist with turning. bed alarm on and call light in reach. will continue to monitor.
[2018-05-02 08:26] VITALS: BP 114/82
[2018-05-02 19:47] VITALS: BP 143/77
[2018-05-03 04:30] LABS: CALCIUM 8.3 mg/dL (8.5-10.1); CREATININE 1.6 mg/dL (0.6-1.0); MAGNESIUM 1.6 mg/dL (1.8-2.4)
[2018-05-03 05:17] LABS: ABSOLUTE NEUTROPHILS 3.1 thou/uL (1.4-8.2); BASOPHILS 0.5 % (0.0-2.0); EOSINOPHILS 4.4 % (0.0-3.0); HEMATOCRIT 33.7 % (37.0-47.0); HEMOGLOBIN 10.8 gm/dL (12.0-15.0); LYMPHOCYTES 36.1 % (24.0-44.0); MCH 26.5 pg (26.0-34.0); MCHC 32.1 g/dL (28.0-37.0); MCV 82.7 fL (80.0-100.0); MONOCYTES 10.1 % (1.0-8.0); PLATELET COUNT 246 thou/uL (150-400); POLYS 48.9 % (36.0-66.0); RBC 4.08 mil/uL (4.20-5.00); RDW 16.4 % (10.5-14.5); WBC 6.4 thou/uL (4.0-11.0)
--- NOTE | 2018-05-03 06:05 | NUR ---
PT LYING IN BED. LORTAB PROVIDING PAIN RELIEF. HAD A PIPPA BM THIS MORNING. RESTING COMFORTABLY. NO NEEDS VOICED. CALL LIGHT WITHIN REACH. WILL CONTINUE TO PROVIDE FREQUENT OBSERVATION.
[2018-05-03 07:00] VITALS: BP 151/93
--- NOTE | 2018-05-03 08:13 | NUR ---
ASSUME PT CARE AT 0700. RECEIVED REPORT FROM NIGHT NURSE. PT SLEPT WELL. HAD LARGE BM TODAY. MAZA CATH INTACT WITH 850CC THIS AM. CALLED DR. CASTRO OFFICE PER ORDER PT REQUESTS FOR STEROID INJECTION FOR RIGHT KNEED DJD. PT C/O RIGHT KNEE PAIN 09/25, GIVE PRN TYLENOL AND LORTAB PER QUESTS. OT GOT PT UP AND GIVE SPONGE BATH NOW. WILL CONTINUE TO MONITOR.
--- NOTE | 2018-05-03 11:21 | NUR ---
Nutrition: Pt seen for LOS. Admitted for debility. Hx of DM type II, hld, htn. BMI of 60.7=obesity class III. Current wt 353 lbs, 6% loss x2 wks from 04/19 wt of 376. May be due to negative fluid balance, inaccurate bed scale. Pt stated trying to lose wt. Good appetite, pt reported 50-100%. Nsg reported 100%. DM education given on 04/23. BG controlled. Low nutrition risk.
[2018-05-03 13:51] VITALS: BP 138/84
--- NOTE | 2018-05-03 16:01 | NUR ---
cm left message for pt daughter and karma on still needing how [facility] are at home rt dme needed for dc needs.
[2018-05-03 20:04] VITALS: BP 148/81
--- NOTE | 2018-05-04 04:31 | NUR ---
ASSUMED CARE AT START OF SHIFT PT RESTING IN BED, TURNED EVERY 2 HOURS, PO MEDICATON TAKEN WITH HS SNACK , DISCUSSED PLAN OF CARE AND AGREEABLE, RESTED WELL THROUGHOUT HOURL ROUNDS, HAD ON ELARE STOOL THIS SHIFT
[2018-05-04 08:00] VITALS: BP 132/86
--- NOTE | 2018-05-04 13:42 | NUR ---
team meeting, recommendation : re team with possible dc , see if able to stay in common living area at the daughter home. cont working on dme, ie bariatric hospital bed, slide board possible [facility]. cont with rehab for mobility.
--- NOTE | 2018-05-04 15:50 | NUR ---
ASSUMED CARE AT APPROX 0715. PATIENT A/O X4. C/O KNEE AND BACK PAIN. PRN LORTAB AND TYLENOL MEDICATED FOR THERAPY. MAZA TO DD, SECURED, MATTHEW-CARE COMPLETED. YELLOW URINE. Z-GUARD APPLIED TO LEFT GROIN, GETTING BETTER. PATIENT PARTICIPATED IN THERAPY. TOLERATED SITTING UP IN WC FOR MOST OF MORNING. LIFT USED TO TRANSFER PATIENT BACK TO BED. OFFERED SUPPORTIVE CARE. VSS ON RA. REASSESSMENT PER CHART. MEDS GIVEN ORDERED. FALL PRECAUTIONS IN PLACE. PATIENT TURNED Q2. RESTING IN BED. WILL CONTINUE TO MONITOR.
--- NOTE | 2018-05-04 16:37 | NUR ---
FAXED REFERRAL TO [facility] FOR HOSPITAL BED AND JERRY MCKENNA FOR PT. AT HOME. SPOKE WITH JOSSIE AND SHE RECEIVED REFERRAL. ANTICIPATE DC 05/14. DCP TO FOLLOW.
[2018-05-04 20:00] VITALS: BP 140/74
--- NOTE | 2018-05-05 02:39 | NUR ---
ASSUMED CARE OF PT AT 1915. PT ALERT AND ORIENTED X4. MAZA PATENT WITH CLEAR YELLOW URINE. DENIES NAUSEA OR DYPSNEA. C/O RIGHT KNEE DISCOMFORT, DECLINES PAIN MEDICATION THUS FAR. HAS APPEARED TO BE SLEEPING WHEN CHECKED ON HOURLY ROUNDS. FALL PRECAUTIONS IN PLACE.
[2018-05-05 08:56] VITALS: BP 148/86
--- NOTE | 2018-05-05 10:05 | NUR ---
ASSUMED CARE AT 0700. PATIENT IS ALERT AND ORIENTED X4. COYNE'S, HIGHWAY WORKER ARE EQUAL. PATIENT UP WITH ASSIST WITH OT WITH SLIDE BOARD TO W/C. DR. MURPHY HERE TO INJECT HER RIGHT KNEE. CONSENT SIGNED. ABD IS SOFT WITH BSX4. PATIENT HAS MAZA TO DD, DRAINING JOSE JUAN COLORED URINE. PATIENT HAD BREAKFAST IN BED. FALL AND SAFETY PROTOCOLS IN PLACE. DENIES PAIN. CONTINUES TO PROGRESS TOWARDS D/C GOALS. WILL CONTINUE TO MONITER.
--- NOTE | 2018-05-05 15:02 | NUR ---
Patient participated in community reintegration on 05/05/18 with Physical Therapy. Refer to documentation by PT.
[2018-05-05 21:34] VITALS: BP 178/84
--- NOTE | 2018-05-06 04:49 | NUR ---
ASSESSMENT: PT REMAIN ALERT AND ORIENT TIMES FOUR. HELPS WITH EVERY TWO HOUR TURNS. TOLERATING HS SNACK. NO BS CHECKS. SLEPT MOST OF THE NIGHT. BP ELEVATED, CLONODINE GIVEN. MAZA PATENT, UO ADEQUATE. JERRY LIFT FROM 3RD FLOOR AVAILABLE FOR THERAPHY. SLOW PROGRESS TOWARDS DC GOALS. WILL CONTINUE TO MONITOR.
[2018-05-06 08:17] VITALS: BP 152/68
--- NOTE | 2018-05-06 11:48 | NUR ---
ASSUMED CARES AT 0700. PT AWAKE, ALERT AND ORIENTED*4, C/O KNEE PAIN, PAIN MEDICATION ADMINISTERED NEEDED. VITALS REMAIN STABLE. ALL MEDICATION ADMINISTERED ORDERED. MAZA REMAINS INTACT AND PATENT, URINE IS LIGHT YELLOW AND CLEAR. PT CONTINUES TO HAVE SKIN TEARS AROUND HER GROINS, Z-GUARD APPLIED, SITE LEFT CLEAN AND DRY. Q2H TURNS WHEN IN BED. PT UP WITH SLIDEBOARD/ EZ STAND WITH THERAPY AND TRANSFER BACK TO BED WITH JERRY LIFT. PT SITTING ON THE EDGE OF BED AND MAKING 2-5 STEPS WITH THERAPY. Q1H VISUAL CHECKS. CALL LIGHT WITHIN REACH. FALL PRECAUTIONS IN PLACE
[2018-05-06 19:24] VITALS: BP 148/88
--- NOTE | 2018-05-07 00:27 | NUR ---
PT ASSESSMENT COMPLETED AND VSS. MEDS GIVEN ORDERED AND WELL TOLERATED. FALL PRECAUTIONS IN PLACE. MAZA DRAINING YELLOW URINE. ASST WITH FREQUENT REPOSITION. PRN PAIN MEDICATION WORKING WELL. SLEEPING. WILL CONTINUE TO MONITOR.
[2018-05-07 07:55] VITALS: BP 140/79
--- NOTE | 2018-05-07 09:19 | PLAN ---
[facility] [place] [address] REHAB UNIT PLAN OF CARE Name: STERLING DEWITT Room #: 516-1 ADM IN M.R.#: [id number] Admission: 04/15/18 ������������������ Attend Phys: Abdiel Rodriguez MD Discharge: ������������������ Date of : 52 Report #: [id number] THIS REPORT FOR: //name// CC: Abdiel Stuart DATE OF SERVICE: 05/05/2018 SUBJECTIVE: The patient is seen back today in followup. She has been having complaints of primarily right knee pain that has been inhibiting her therapies. No other specific complaints. Temperature is 98, pulse 66, respirations 16, blood pressure 150/87. Alert, pleasant, oriented. We have been working with her in therapies. Transfers have been max assist x 2. She was able to ambulate 90 feet frame walking. We have been working on wheelchair mobility. ASSESSMENT: 1. Generalized debilitation. 2. Gram-negative urinary tract infection. 3. Fecal impaction, status post disimpaction. 4. Urinary retention. Has indwelling Marino catheter. 5. Acute renal insufficiency. 6. Hypotension, resolved. 7. Hypokalemia, resolved. 8. Chronic pain syndrome. 9. Morbid obesity. 10. Diabetes mellitus type 2. 11. 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 PLAN: The patient is continuing in the current therapy program. ADDENDUM: Right knee injection performed today. She had the consent signed as per discussion with nursing. Discussed with her potential side effects including infection, nerve damage, increased inflammation, excessive bleeding, tendon weakening, rupture, whitening of skin around ejection, temporary increase in blood sugar, osteonecrosis. She desired to proceed with the hopes of having it gradually improve her functional mobility and independence with getting back home. PROCEDURE: The right knee was prepped with Betadine sticks followed by alcohol wipes 40 mg Depo-Medrol with 2 mL 2% lidocaine without epinephrine was injected utilizing a 22-gauge needle through the medial parapatellar groove with no touch technique. Sterile gloves were utilized. Band-Aid placed afterwards. No bleeding was noted. The patient tolerated very well and indicated she did not feel it. [address] [address] REHAB UNIT PLAN OF CARE Name: STERLING DEWITT Room #: 516-1 ADM IN .R.#: [id number] Admission: 04/15/18 ������������������ Attend Phys: Abdiel Rodriguez MD Discharge: ������������������ Date of : 52 Report #: [id number] Discussion with physical therapy. We will hold off on standing today. Gradually increase mobility starting tomorrow. No bathtub x 2 days. May shower. To use ice p.r.n. ��������������������������������������������� <ELECTRONICALLY SIGNED> ���������������������������������������� By: Abdiel Rodriguez MD ��������������������������������������������� 05/07/18 0919 [id number] Abdiel Rodriguez MD /nt
--- NOTE | 2018-05-07 18:16 | NUR ---
ASSUMED CARE OF PATIENT AT APPROXIMATELY 0715. PATIENT IS A&OX4, VITAL SIGNS ARE STABLE. DURING ASSESSMENT THIS SHIFT PATIENT WAS FOUND TO HAVE REDNESS, MOISTURE AND OPEN AREA UNDER BREASTS BILATERALLY, PHOTOS TAKEN AND PROVIDER CONTACTED FOR FURTHER ORDERS. PATIENT'S MAZA CATHETER WAS REMOVED AT 1040 PER ORDERS, EXTERNAL FEMALE CATHETER PLACE, AND HAD NO URINE OUTPUT AT 1630. BLADDER SCAN PERFORMED PER PROTOCOL AND PROVIDER CONTACTED FOR FURTHER ORDERS. PATIENT EDUCATED DURING SHIFT ABOUT SNACK OPTIONS APPROPRIATE FOR HER DIETARY NEEDS, AND WAS ABLE TO VERBALIZE AND DEMONSTRATE UNDERSTANDING TO THIS NURSE. PATIENT'S PAIN WAS TREATED PER ORDERS PRIOR TO THERAPIES. PATIENT TOOK ALL MEDICATIONS WHOLE WITH REGULAR LIQUIDS WITHOUT ISSUES. PATIENT HAS CALL LIGHT IN REACH, FALL PRECAUTIONS IN PLACE, AND NURSING WILL CONTINUE TO MONITOR PATIENT.
[2018-05-07 21:00] VITALS: BP 131/73
--- NOTE | 2018-05-08 02:15 | NUR ---
assumed care at approx 1900 evening 05/07. pt lying in bed with head of bed elevated dozing off and on. pt woke for hs meds, alert and oriented x4 asking for snack. pt with external female catheter in place emptying large amt yellow urine in canister. pt on low airloss bed. pt appears to be sleeping soundly with hourly rounding checks and q2 turning. call light in reach. will continue to monitor.
[2018-05-08 05:53] VITALS: BP 150/87
[2018-05-08 08:20] VITALS: BP 147/83
--- NOTE | 2018-05-08 09:37 | NUR ---
ASSUMED CARE AT 0700. PATIENT IS ALERT AND ORIENTED X4. PATIENT COYNE'S. MERCHANDISING EXECUTION ASSOCIATE ARE EQUAL. LUNGS ARE CLEAR. ABD IS SOFT WITH BSX4. PATIENT HAS EXTERNALL CATHETER IN PLACE. C/O PAIN IN HER BACK. MEDICATED WITH PRN PAIN MED. FALL AND SAFETY PROTCOLS IN PLACE. CONTINUES TO PROGRESS TOWARDS D/C GOALS. WILL CONTINUE TO MONITER.
[2018-05-08 19:59] VITALS: BP 138/106
[2018-05-09 00:03] VITALS: BP 149/76
--- NOTE | 2018-05-09 04:47 | NUR ---
Assumed care of pt at 1915. Pt alert and oriented x4. Repositioned q 2 hrs with assist of one. c/o headache, relieved with Hydrocodone. BP= 138/106 at 1999, Clonidine given early. At the time of her headache, BP was 149/70. Denies nausea or dypsnea. Appeared to be sleeping when checked on hourly rounds. Fall precautions in place.
[2018-05-09 07:45] VITALS: BP 150/85
--- NOTE | 2018-05-09 19:30 | NUR ---
ASSUMED CARE OF PATIENT AT APPROXIMATELY 0730. PATIENT IS A&O X4, VITAL SIGNS STABLE. PATIENT HAD PAIN MANAGED WITH MEDICATION PRIOR TO THERAPY. PATIENT REFUSED TO GET OUT OF BED THIS SHIFT, BUT DID TURN EVERY 2 HOURS WITH ASSISTANCE. PATIENT USES CALL LIGHT APPROPRIATELY. PATIENT HAD 1 EPISODE OF INCONTINENCE OF URINE AND BOWEL THIS SHIFT. ALL LINENS CHANGED AND EXTERNAL FEMALE CATHETER PLACED. PATIENT HAD >1500 OUTPUT VIA EXTERNAL FEMALE CATHETER THIS SHIFT. FAMILY AT THE BEDSIDE THIS AFTERNOON. CALL LIGHT IS IN REACH AND FALL PRECAUTIONS IN PLACE, WILL CONTINUE TO MONITOR AND ASSESS PATIENT.
[2018-05-09 19:36] VITALS: BP 142/81
[2018-05-10 05:46] LABS: ALBUMIN 2.4 g/dL (3.4-5.0); CALCIUM 8.7 mg/dL (8.5-10.1); CREATININE 1.7 mg/dL (0.6-1.0); MAGNESIUM 1.6 mg/dL (1.8-2.4); PHOSPHORUS 2.9 mg/dL (2.5-4.9); POTASSIUM 4.4 mmol/L (3.5-5.1)
[2018-05-10 08:00] VITALS: BP 145/87
--- NOTE | 2018-05-10 13:14 | NUR ---
Nutrition followup: Pt continues to eat well, 75-100% of meals. No new weight since last eval but most current weight trending 20# lower than admit to rehab, suspect partially fluid related. Pt voices no questions related to prior diet education completed. Low risk.
--- NOTE | 2018-05-10 13:30 | NUR ---
WHILE PT IN PHYSICAL THERAPY, SHE REQUESTED PAIN MEDICATION. SHE HAD ALREADY RECEIVED HYDROCODONE AT 1200. DISCUSSED WITH HER, AND SHE REQEUSTED THAT WE ASK THE MD FOR SOMETHING STRONGER, OR DIFFERENT, HER PAIN IS NOT CONTROLLED ON HER CURRENT MEDICATIONS. THIS WAS PASSED ON TO HER RN, AND DR. URBINA WAS PAGED.
--- NOTE | 2018-05-10 14:51 | NUR ---
PER LESLY ANDRES, DR. URBINA WAS PAGED AGAIN.
[2018-05-10 19:39] VITALS: BP 137/82
--- NOTE | 2018-05-10 20:01 | NUR ---
ASSUMED CARE AT APPROX 0715. PATIENT A/O X4. C/O PAIN IN BACK AND KNEES. PATIENT PARTICIPATED IN THERAPY, REPORTED PAIN MEDS WERE NOT CONTROLLING PAIN WHILE AMBULATING. ATTEMPTED TO CALL PHYSICIAN MULTIPLE TIMES THIS AFTERNOON, NO CALL BACK RECEIVED. PATIENT REPORTED SOME RELIEF WHEN AT REST IN BED. PATIENT INCONTINENT X2 THIS SHIFT. FALL PRECAUTIONS IN PLACE. RESTING IN BED AT CHANGE OF SHIFT.
--- NOTE | 2018-05-11 01:32 | NUR ---
PT ALERT AND ORIENTED X 4. FEMALE EXTERNAL CATHETER IN PLACE WITH CLOUDY YELLOW URINE. BOWEL AIDS HELD AT HS SINCE PT HAD SEVERAL BM'S ON DAY SHIFT. PT DENIES PAIN OR DISCOMFORT. TURNED Q2H. PT APPEARS TO BE SLEEPING IN BETWEEN TURNS.
[2018-05-11 08:00] VITALS: BP 145/90
--- NOTE | 2018-05-11 09:49 | NUR ---
ASSUMED CARE AT 0700. PATIENT IS ALERT AND ORIENTED X4. PATIENT COYNE'S, SEALER SANDER ARE STRONG . LUNGS ARE CLEAR. ABD IS SOFT WITH BSX4. ABD IS SOFT WITH BS X4. PATIENT IS VOIDING JOSE JUAN COLORED URINE PER EXTERNAL CATHETER. PATIENT WAS SLIDE BOARD FROM BED TO W/C. UP IN W/C FOR BREAKFAST. FALL AND SAFETY PROTOCOLS IN PLACE. C/O PAIN IN HER RIGHT KNEE. N.P HERE. IBUPROFEN 600MG ORDERED FOR PAIN WITH MEALS. PATIENT CONTINUES TO PROGESS SLOWYLY TOWARDS D/C GOALS. WILL CON'T TO MONITER
--- NOTE | 2018-05-11 12:38 | NUR ---
team meeting, recommendation : dc home with daughter home, stay in main living area, 05/14/18. home health nurse. [facility] and bariatric hospital bed. will cont following as needed for dc need. family training 05/13/18 with therapy and diet choices family training as needed.
[2018-05-11 19:55] VITALS: BP 132/67
--- NOTE | 2018-05-12 00:17 | NUR ---
PT ALERT AND ORIENTED X 4. FEMALE EXTERNAL CATH WITH CLOUDY YELLOW URINE. PT REFUSED VOLTAREN GEL AND BOWEL AIDS AT HS. PT DENIES PAIN OR DISCOMFORT. PT APPEARS TO BE SLEEPING ON HOURLY ROUNDS.
[2018-05-12 08:15] VITALS: BP 155/115
--- NOTE | 2018-05-12 09:25 | NUR ---
ASSUMED CARE AT 0700. PATIENT IS ALERT AND ORIENTED X4. PATIENT COYNE'S. PRIMARY GRADE TEACHER ARE EQUAL. LUNGS ARE CLEAR. ABD IS SOFT WITH BSX4. PATIENT HAD LARGE BM THIS AM. PATIENT DID SLIDE BOARD TRANSFER TO W/C. UP IN W/C FOR BREAKFAST. FALL AND SAFETY PROTOCOLS IN PLACE. C/O RIGHT KNEE PAIN. MEDICATED WITH IBUPROPHEN 600 MG WITH BREAKFAST. PATIENT CONTINUES TO PROGESS TOWARDS D/C GOALS. O.T. REMOVED EXTERNAL CATHETER FOR AM CARE. WILL CONTINUE TO MONITER.
--- NOTE | 2018-05-12 10:13 | NUR ---
PT SPOKE WITH Pt'S DAUGHTER JALEEL PER Pt'S REQUEST. DISCUSSED FAMILY TRAINING, JALEEL STATES SHE WILL BE IN AT 1300 THIS DATE FOR TRAINING. PT TOLD JALEEL THE Pt WOULD BE OFF THE UNIT UNTIL CLOSE TO 1330, JALEEL AGREEABLE TO STARTING FAMILY TRAINING CLOSER TO 1330.
--- NOTE | 2018-05-12 12:33 | NUR ---
WOUND CONSULT; THE LEFT GROIN, LEFT BREAST AND THE RIGHT BREAST ARE CONSISTANT WITH A FUNGAL ETIOLOGY. CURRENTLY USING ZGUARD AND THE RESULTS ARE NOT SIGNIFICANT. RECOMMENDATIONS; D/C ZGUARD AND USE INTERDRY TO ALL THESE AREAS. DISCUSSED WITH RN
--- NOTE | 2018-05-12 14:01 | NUR ---
Patient participated in community reintegration on 05/12/18 with PHYSICAL THERAPY. Refer to documentation by JO PHYSICAL THERAPIST.
--- NOTE | 2018-05-12 14:40 | NUR ---
Nutrition: Met with family to answer additional diet related questions per request. Additional materials given and RD name/# provided. Possible outpatient surgery consult as pt voiced interest in bariatric surgery noted.
--- NOTE | 2018-05-12 16:31 | NUR ---
PATIENT AND FAMILY DID TRAINING ON JERRY LIFT TRANSFERS AND SLIDE BOARD TRANSFER. FAMILY WAS GIVEN EDUCATION ON DIET/FOOD PREPERATION, MEALS AND SNACKS. ALL FAMILY PRESENT VERBALIZED UNDERSTANDING.
[2018-05-12 19:32] VITALS: BP 175/87
--- NOTE | 2018-05-13 02:59 | NUR ---
ASSUMED CARE OF PT AT 1915. PT ALERT AND ORIENTED X4. C/O PAIN IN LOWER BACK AND KNEES, RELIEVED WITH HYDROCODONE. REPOSITIONED Q [address] IN PL[address], URINE CLOUDY YELLOW. HAS NOT BEEN ABLE TO SLEEP OF YET, STATES SHE HAD "A LOT TO THINK ABOUT WITH GOING HOME". CHECKED ON HOURLY ROUNDS. FALL PRECAUTIONS IN PLACE.
[2018-05-13 06:22] LABS: HEMATOCRIT 34.8 % (37.0-47.0); HEMOGLOBIN 11.2 gm/dL (12.0-15.0); MCH 26.5 pg (26.0-34.0); MCHC 32.2 g/dL (28.0-37.0); MCV 82.2 fL (80.0-100.0); PLATELET COUNT 227 thou/uL (150-400); RBC 4.24 mil/uL (4.20-5.00); RDW 16.2 % (10.5-14.5); WBC 5.3 thou/uL (4.0-11.0)
[2018-05-13 06:41] VITALS: BP 134/69
[2018-05-13 06:52] LABS: CALCIUM 8.9 mg/dL (8.5-10.1); CREATININE 1.9 mg/dL (0.6-1.0); MAGNESIUM 1.9 mg/dL (1.8-2.4); POTASSIUM 4.2 mmol/L (3.5-5.1)
[2018-05-13 08:09] LABS: ABSOLUTE NEUTROPHILS 2.5 thou/uL (1.4-8.2); METAMYELOCYTES 1 %
[2018-05-13 08:24] LABS: ANISOCYTOSIS 1+
[2018-05-13 09:07] VITALS: BP 130/66
--- NOTE | 2018-05-13 16:33 | NUR ---
ASSUMED CARE OF PATIENT AT 0715. PATIENT A/O X4, VITAL SIGNS STABLE. C/O PAIN IN BUTTOCKS, WHICH WAS RELIEVED BY SCHEDULED IBUPROFEN AND REPOSITIONING. PATIENT PARTICIPATED WITH SCHEDULED THERAPIES WHILE UP IN W/C. PATIENT TRANSFERED BACK TO BED AT APPROXIMATELY 1400 AND EXTERNAL FEMALE CATHETER WAS PLACED. PATIENT REPORTS THAT SHE IS EXCITED TO BE GOING HOME, BUT DOES WORRY ABOUT HOW WELL SHE WILL DO UPON DISCHARGE. FALL PRECAUTIONS IN PLACE, AND NURSING WILL CONTINUE TO MONITOR PATIENT.
[2018-05-13 21:04] VITALS: BP 141/72
--- NOTE | 2018-05-14 01:41 | NUR ---
PT ASSESSMENT COMPLETED AND VSS. MEDS GIVEN ORDERED AND WELL TOLERATED. FALL PRECAUTIONS IN PLACE. ASST WITH FREQUENT REPOSITION FOR COMFORT. FEMALE EXT CATH IN PLACE AND WORKING WELL. SOFT SMALL BM DURING SHIFT. SLEEPING ON AND OFF. WILL CONTINUE TO MONITOR FREQUENTLY.
[2018-05-14 07:54] VITALS: BP 140/71
--- NOTE | 2018-05-14 08:00 | NUR ---
letty visited with karma at bedside, she stated " need transportation home and my daughter not off work till 2 pm, so cant go before that"/karma. cm team to check and see when bariatric hosp bed and ross lift will be delivered to home from [facility]. will cont following as needed for dc needs.
[2018-05-14] MEDS ORDERED: IBUPROFEN 400400 M2 PO (09:13)
[2018-05-14] MEDS ORDERED: CATAPRES0.1 MG PO (09:13)
[2018-05-14] MEDS ORDERED: ATORVASTATIN CA40 MG PO (09:13)
[2018-05-14] MEDS ORDERED: MAGOX 400400 MG PO (09:13)
[2018-05-14] MEDS ORDERED: PROTONIX40 M1 PO (09:13)
[2018-05-14] MEDS ORDERED: AMITRIPTYLINE H50 M2 PO (09:13)
[2018-05-14] MEDS ORDERED: FELODIPINE ER10 MG PO (09:13)
[2018-05-14] MEDS ORDERED: FLOMAX0.4 MG PO (09:13)
[2018-05-14] MEDS ORDERED: TYLENOL325 MG PO (09:13)
[2018-05-14 10:29] VITALS: BP 140/71
--- NOTE | 2018-05-14 10:30 | NUR ---
PT. DISCHARGING TODAY TO HOME WITH [facility] HH SPOKE WITH ABEL IN ADM. SHE HAS DC ORDERS/SUMMARY AND WILL NOTIFY PT. OF TIME OF VISITS.
--- NOTE | 2018-05-14 12:27 | NUR ---
PT. DISCHARGING TODAY TO HOME WITH [facility] HH RN ONLY. SET UP TRANSPORTATION VIA [facility] [facility] WITH [employer] TRIP #[id number] BETWEEN [phone] TODAY. UNIT NOTIFIED OF TIME OF TRANSPORT. [facility] NOTIFIED OF DISCHARGE.
[2018-05-14 13:14] VITALS: BP 131/77
--- NOTE | 2018-05-14 14:42 | NUR ---
ASSUMED PT CARE REPORTE RECEIVED FROM NURSE. PT IS AOX4 ON RA VSS. MEDICATION ADMINISTERED ORDERED. Q2TURN. PT SAW PT IN ROOM. FIM DOCUMENTED. HOURLY ROUNDING PERFORMED. PT HAS GOOD APPETITE. PUREWICK CATHETER IN AND WORKING OK. DISCHARGE ORDER IN COMPUTER. READY FOR DISCHARGE. DRESSED, BELONGINGS GATTHERED. DISCHARGE INSTRUCTIONS GIVEN. PT STATES UNDERSTANDING. NO FURTHER QUESTIONS ASKED. NURSE SPOKE WITH DAUGHTER AND NOTIFIED HER ABOUT DC TODAY. CASE MANAGEMENT SET UP REPORTING COORDINATOR. TRANSPORTATION IS ALREADY ON THEIR WAY AT THIS MOMENT. PT SITTING IN ROOM IN WHEELCHAIR. AWAITING FOR TRANSPORTATION. CONTROL VALVE TECHNICIAN CONTACTED BY NURSE TO MAKE SURE THE PT EQUIPEMENT IS PROPERLY DELIVERED AT HER ADDRESS. AWAITNG CALL BACK FROM CONTROL VALVE TECHNICIAN [place]. WILL CONTINUE TO MONITOR PT
--- NOTE | 2018-05-14 16:50 | NUR ---
PT LEFT FLOOR AT 1650 ACCOMPANIED BY TRANSPORTER FROM [employer]. PT H&P WAS FAXED TO THE DR GUAJARDO OFFICE ORDERED. BELONGINGS BROUGHT ALONG.
== END 2018-05-14 16:50 | disposition home health service (06) | DRG 948 ==
PROVIDERS: Hospitalist; Nurse Practitioner; Nurse Practitioner Family; ADMIT Physical Medicine & Rehabilitation
DX: R53.81 Other malaise (principal); Z68.43 Body mass index [BMI] 50.0-59.9, adult; N17.9 Acute kidney failure, unspecified; N39.0 Urinary tract infection, site not specified; F11.20 Opioid dependence, uncomplicated; K56.41 Fecal impaction; R33.9 Retention of urine, unspecified; I12.9 Hypertensive chronic kidney disease with stage 1 through stage 4 chronic kidney disease, or unspecified chronic kidney disease; E87.6 Hypokalemia; E66.01 Morbid (severe) obesity due to excess calories; G89.4 Chronic pain syndrome; E11.22 Type 2 diabetes mellitus with diabetic chronic kidney disease; F34.1 Dysthymic disorder; G31.84 Mild cognitive impairment of uncertain or unknown etiology; F41.9 Anxiety disorder, unspecified; N18.3 Chronic kidney disease, stage 3 (moderate); E78.00 Pure hypercholesterolemia, unspecified; M10.9 Gout, unspecified; Z96.641 Presence of right artificial hip joint; I95.9 Hypotension, unspecified; E78.5 Hyperlipidemia, unspecified; M17.11 Unilateral primary osteoarthritis, right knee; E83.42 Hypomagnesemia; Z90.710 Acquired absence of both cervix and uterus; Z87.891 Personal history of nicotine dependence
CPT/HCPCS: 10112

== ENCOUNTER 2020-12-21 14:28 | Emergency (ER) | payer OTHER ==
[~2020-12-21] VITALS: Ht 167.6 cm; Wt 120.2 kg
[~2020-12-21 14:28] MED LIST changes: +CATAPRES0.1 MG PO; +FELODIPINE ER10 MG PO; +FLOMAX0.4 MG PO; +IBUPROFEN 400400 M2 PO; +MAGOX 400400 MG PO; +MIRALAX17 GM PO; +NOVOLOG100 UNIT/1 SUBQ; +PROTONIX40 M1 PO; +TYLENOL325 MG PO
[2020-12-21 15:18] LABS: ABSOLUTE NEUTROPHILS 5.2 thou/uL (1.4-8.2); BASOPHILS 1.1 % (0.0-2.0); EOSINOPHILS 0.9 % (0.0-3.0); HEMOGLOBIN 14.8 gm/dL (12.0-15.0); LYMPHOCYTES 19.1 % (24.0-44.0); MCH 28.4 pg (26.0-34.0); MCHC 32.2 g/dL (28.0-37.0); MCV 88.2 fL (80.0-100.0); MONOCYTES 8.4 % (1.0-8.0); PLATELET COUNT 282 thou/uL (150-400); POLYS 70.5 % (36.0-66.0); RBC 5.21 mil/uL (4.20-5.00); RDW 17.3 % (10.5-14.5); WBC 7.3 thou/uL (4.0-11.0)
[2020-12-21] MEDS ORDERED: ELIQUIS2.5 MG PO (15:23)
[2020-12-21] MEDS ORDERED: ALLOPURINOL 10100 M3 PO (15:23)
[2020-12-21] MEDS ORDERED: CALCIUM500 MG PO (15:25)
[2020-12-21] MEDS ORDERED: TRAMADOL 50 MG50 MG PO (15:26)
[2020-12-21] MEDS ORDERED: NORCO7.5 PO (15:26)
[2020-12-21] MEDS ORDERED: ZOLOFT 50 MG TA50 MG PO (15:27)
[2020-12-21] MEDS ORDERED: VITAMIN D3 COM1 EACH PO (15:27)
[2020-12-21 15:29] LABS: CALCIUM 9.6 mg/dL (8.5-10.1); CREATININE 5.7 mg/dL (0.6-1.0)
[2020-12-21 15:37] LABS: POTASSIUM 5.7 mmol/L (3.5-5.1)
[2020-12-21 19:50] VITALS: BP 94/72
== END 2020-12-21 19:50 | disposition home or self-care (01) ==
LOC: ER 14:28
PROVIDERS: Emergency Medicine
DX: E87.5 Hyperkalemia (principal); I12.9 Hypertensive chronic kidney disease with stage 1 through stage 4 chronic kidney disease, or unspecified chronic kidney disease; E11.22 Type 2 diabetes mellitus with diabetic chronic kidney disease; N18.30 Chronic kidney disease, stage 3 unspecified; E78.00 Pure hypercholesterolemia, unspecified; Z90.710 Acquired absence of both cervix and uterus; Z79.891 Long term (current) use of opiate analgesic; Z79.82 Long term (current) use of aspirin; Z79.899 Other long term (current) drug therapy